=== PATIENT | female | born 1980 | race Caucasian/White ===

== ENCOUNTER 2017-05-30 14:58 | Emergency (ER) | payer SELFPAY ==
--- NOTE | 2017-05-30 16:09 | ED.PDOC ---
History of Present Illness - General Chief Complaint: Problem Stated Complaint: left flank pain/fever Time Seen by Provider: 05/30/17 16:08 Source: patient Exam Limitations: no limitations - History of Present Illness Initial Comments: Mallika Hanson 36 y/o female stated that she had sharp intermittent left flank pains the last 3 days getting worse denies dysuria,felt nauseated able to eat a little bit but threw up once today also febrile today and chills Timing/Duration: intermittent, other - 3 days Improving Factors: nothing Worsening Factors: nothing Associated Symptoms: loss of appetite Allergies/Adverse Reactions: Allergies NO KNOWN ALLERGY Allergy (Verified 05/30/17 15:47) Home Medications: Ambulatory Orders HYDROcodone 5MG/APAP 325MG [[place] 5/325] 1 - 2 ea PO Q4H PRN #40 tab 04/02/16 Levofloxacin [Levaquin] 500 mg PO DAILY #5 tab 04/02/16 metroNIDAZOLE [Flagyl] 500 mg PO Q8HR #15 tab 04/02/16 Acetamin W/Cod #3 Tab [Tylenol w/CODEINE #3] 1 ea PO Q4HR PRN #14 tab 05/30/17 Sulfamethoxazole-Trimethoprim [Bactrim Ds 800-160 mg] 1 tab PO BID #14 tab 05/30 Review of Systems - Review of Systems Constitutional: States: see HPI, fever EENTM: States: no symptoms reported Respiratory: States: no symptoms reported Cardiology: States: no symptoms reported Gastrointestinal/Abdominal: States: no symptoms reported Genitourinary: States: no symptoms reported Musculoskeletal: States: see HPI, other - left flank pain Past Medical History (General) - Patient Medical History Hx Seizures: No Hx Stroke: No Hx Asthma: No Hx of COPD: No Hx Cardiac Disorders: No Hx Congestive Heart Failure: No Hx Pacemaker: No Hx Hypertension: No Hx Diabetes: No Hx MRSA: No Surgical History: appendectomy - Vaccination History Hx Tetanus, Diphtheria Vaccination: No Hx Influenza Vaccination: No Hx Pneumococcal Vaccination: No - Social History Hx Tobacco Use: No Hx Alcohol Use: Yes - occassionally Hx Substance Use: Yes - methamphetamines 11 yrs ago Hx Substance Use Treatment: No Hx Physical Abuse: No Hx Emotional Abuse: No - Activities of Daily Living Hospice Agency (if applicable):: None - Female History Patient is a Female of Child Bearing Age (10 -59 yrs old): Yes Hx Last Menstrual Period: 05/17/17 Patient : No - Triage Comment ED Triage Comment: LMP one week ago Family Medical History - Family History Mother Family History: No Known Living Status: Still Living Physical Exam - Physical Exam General Appearance: Alert, Comfortable, No apparent distress Eye Exam: bilateral normal Ears, Nose, Throat: hearing grossly normal, normal ENT inspection, normal pharynx Neck: non-tender, supple, normal inspection Respiratory: chest non-tender, lungs clear, normal breath sounds Cardiovascular/Chest: normal peripheral pulses, regular rate, rhythm, no murmur Peripheral Pulses: radial,right: 2+, radial,left: 2+ Gastrointestinal/Abdominal: non tender, soft, no organomegaly Back Exam: no vertebral tenderness, CVA tenderness (L) Extremity: non-tender, no pedal edema, no calf tenderness Neurologic: no motor/sensory deficits, alert, oriented x 3 Progress - Progress Progress: 05/30/17 16:51 Vital Signs - 8 hr 05/30/17 15:38 Temperature 102.4 F H Pulse Rate [ 102 H pulse ox] Respiratory 20 Rate Blood Pressure 117/78 [Left Arm] O2 Sat by Pulse 99 Oximetry 05/30/17 20:35 Declined transfer to [facility] wants to see md in am - Results/Orders Results/Orders: Laboratory Tests 05/30/17 05/30/17 05/30/17 16:33 16:33 16:33 WBC 10.8 RBC 4.05 L Hgb 12.4 Hct 36.5 MCV 90.0 MCH 30.6 MCHC 34.1 RDW 12.9 Plt Count 195 MPV 7.6 Absolute Neuts (auto) 9.70 H Absolute Lymphs (auto) 0.40 L Absolute Monos (auto) 0.70 Absolute Eos (auto) 0.00 Absolute Basos (auto) 0.00 Neutrophils % 89.9 H Lymphocytes % 3.3 L Monocytes % 6.5 Eosinophils % 0.1 L Basophils % 0.2 Sodium 135 Potassium 3.8 Chloride 104 Carbon Dioxide 24 Anion Gap 10.8 L BUN 15 Creatinine 1.24 BUN/Creatinine Ratio 12.1 Random Glucose 118 H Serum Osmolality 272.0 L Calcium 9.0 Total Bilirubin 1.3 H AST 17 ALT 16 Alkaline Phosphatase 51 Serum Total Protein 7.3 Albumin 4.2 Globulin 3.1 Albumin/Globulin Ratio 1.4 Urine Color Yellow Urine Appearance Sl cloudy Urine pH 5.5 Ur Specific [place] 1.020 Urine Protein Negative Urine Glucose (UA) Negative Urine Ketones Negative Urine Blood Trace-lysed H Urine Nitrite Negative Urine Bilirubin Negative Urine Urobilinogen 0.2 Ur Leukocyte Esterase Small H Urine RBC 0-1 Urine WBC 5-10 H Ur Epithelial Cells 3-5 Urine Bacteria 2+ H Urine HCG, Qual 05/30/17 16:38 WBC RBC Hgb Hct MCV MCH MCHC RDW Plt Count MPV Absolute Neuts (auto) Absolute Lymphs (auto) Absolute Monos (auto) Absolute Eos (auto) Absolute Basos (auto) Neutrophils % Lymphocytes % Monocytes % Eosinophils % Basophils % Sodium Potassium Chloride Carbon Dioxide Anion Gap BUN Creatinine BUN/Creatinine Ratio Random Glucose Serum Osmolality Calcium Total Bilirubin AST ALT Alkaline Phosphatase Serum Total Protein Albumin Globulin Albumin/Globulin Ratio Urine Color Urine Appearance Urine pH Ur Specific [place] Urine Protein Urine Glucose (UA) Urine Ketones Urine Blood Urine Nitrite Urine Bilirubin Urine Urobilinogen Ur Leukocyte Esterase Urine RBC Urine WBC Ur Epithelial Cells Urine Bacteria Urine HCG, Qual Negative - EKG/XRAY/CT CT Ordered: Yes - abd/p-5 mm obstructing stone left upj junction w/mild hydronephrosis Departure - Departure Clinical Impression: Obstruction of left ureteropelvic junction (UPJ) due to stone, Acute left flank pain, Left nephrolithiasis Time of Disposition: 20:37 Disposition: Discharge to Home or Self Care Departure Forms: ED Discharge - Pt. Copy, Patient Portal Self Enrollment Instructions: Kidney Stones (Alternative Therapy), Kidney Stones -- Adult, DI for Kidney Stones Referrals: ENRIQUE KENNEDY [Primary Care Provider] - 1-2 Weeks Prescriptions: Acetamin W/Cod #3 Tab [Tylenol w/CODEINE #3] 1 ea PO Q4HR PRN #14 tab PRN Reason: Pain Sulfamethoxazole-Trimethoprim [Bactrim Ds 800-160 mg] 1 tab PO BID #14 tab Home Medications: Ambulatory Orders HYDROcodone 5MG/APAP 325MG [[place] 5/325] 1 - 2 ea PO Q4H PRN #40 tab 04/02/16 Levofloxacin [Levaquin] 500 mg PO DAILY #5 tab 04/02/16 metroNIDAZOLE [Flagyl] 500 mg PO Q8HR #15 tab 04/02/16 Acetamin W/Cod #3 Tab [Tylenol w/CODEINE #3] 1 ea PO Q4HR PRN #14 tab 05/30/17 Sulfamethoxazole-Trimethoprim [Bactrim Ds 800-160 mg] 1 tab PO BID #14 tab 05/30 Additional Instructions: NEED TO FOLLOW UP WITH PRIMARY MD in am 05/31/2017 BHAVESH for urology referral Return to emergency room as needed May take Advil(otc) 3- 4 tabs 4 x a day with tylenol 3 for pain
[2017-05-30] MEDS ORDERED: LACTATED RINGERS 1,000 ML IVS ONE (16:10)
[2017-05-30] MEDS ORDERED: KETOROLAC TROMETHAMINE INJ 30 MG/ML VIAL IV ONE (16:36)
[2017-05-30] MEDS ORDERED: MORPHINE SULFATE INJ 10 MG/ML VIAL IV ONE ×2 (16:37→19:41)
[2017-05-30] MEDS ORDERED: PROMETHAZINE HCL INJ 25 MG/ML VIAL IM ONE (16:37)
--- NOTE | 2017-05-30 18:52 | CT ---
EXAM DESCRIPTION: Abdomen/Pelvis w/Contrast CLINICAL HISTORY: 36 years Female, pain COMPARISON: 03/31/2016 TECHNIQUE: Contiguous axial CT images of the abdomen and pelvis were acquired after the administration of intravenous contrast. Coronal and sagittal reformatted images are provided. This exam was performed according to our departmental dose-optimization program which includes use of Automated Exposure Control, adjustment of the mA and/or kV according to patient size and/or use of iterative reconstruction technique. FINDINGS: Chest base: Small right pleural effusion. Mild dependent atelectasis bilaterally. Liver: Unremarkable liver. Mild intrahepatic and extrahepatic biliary ductal dilatation without identifiable obstructing stone. Gallbladder: Unremarkable. Spleen: Unremarkable. Adrenals: Unremarkable. Pancreas: Unremarkable. Right Kidney: No renal stones or hydronephrosis. Left Kidney: A 5 mm obstructing stone is seen within the left UPJ resulting in mild left hydronephrosis. Additionally, at least four punctate nonobstructing stones are seen in the left renal pelvis. Aorta and branch vessels: Unremarkable. Lymph nodes: No lymphadenopathy. Bowels: No obstruction. Colon: No wall thickening. Appendix: Not identified Peritoneum: No free air or free fluid. Pelvic organs: Unremarkable. Bladder: Unremarkable. Bones and soft tissues: No acute osseous or soft tissue abnormalities. IMPRESSION: 5 mm obstructing left UPJ stone with mild left hydronephrosis. At least four punctate nonobstructing stones are seen in the left renal pelvis. Mild intrahepatic and extrahepatic biliary ductal dilatation without obstructing stone. Small right pleural effusion. Electronically signed by: Danial Sandhu MD 05/30/2017 6:50 PM CDT
[2017-05-30] MEDS ORDERED: levoFLOXacin 500MG IV 500 MG in PREMIX BAG 1 BAG IVPB ONE (19:17)
[2017-05-30] MEDS ORDERED: levoFLOXacin 500MG IV 100 ML IVPB ONE (19:18)
[2017-05-30] MEDS ORDERED: SODIUM CHLORIDE 0.9% 1000ML 1,000 ML IVS ONE (19:43)
[2017-05-30] MEDS ORDERED: ACETAMINOPHEN 325 MG TAB PO ONE (20:33)
[2017-05-30] MEDS ORDERED: HYDROCOD/APAP 10/325 (ER DISP) # 3 tablets PO ONE (20:47)
[2017-05-30 22:25] VITALS: BP 112/79; TEMP 100; O2SAT 95
== END 2017-05-30 22:15 | disposition home or self-care (01) ==
LOC: ER 14:58
DX: N13.2 Hydronephrosis with renal and ureteral calculous obstruction (principal)
CPT/HCPCS: 36415; 74177; 80053; 81001; 81025; 85025; 87086; J1885; J1956; J2270; J2550; J7030; J7120

== ENCOUNTER 2017-06-03 01:01 | Emergency (ER) | payer SELFPAY ==
[2017-06-03] MEDS ORDERED: SODIUM CHLORIDE 0.9% 1000ML 1,000 ML IVS ONE (01:24)
--- NOTE | 2017-06-03 01:31 | ED.PDOC ---
History of Present Illness - General Chief Complaint: Fever Stated Complaint: fever, N/V/D Time Seen by Provider: 06/03/17 01:14 Source: patient, RN notes reviewed, Vital Signs reviewed, family Exam Limitations: no limitations - History of Present Illness Initial Comments: Patient comes in with c/o fever to 103.8 tonight with nausea and vomiting. She was seen here in the ER on 05/30/17 with same symptoms and diagnosed with a 5mm obstructing kidney stone on L with mild hydronephrosis. Refused transfer to [facility]. Send home with pain medication and Bactrim. Symptoms of nausea and vomiting have continues since. She has not passed a kidney stone yet, still with flank pain but now hurts all over. Saw PCP but did not go to Urologist due to cost. Timing/Duration: getting worse - over past 3 days Fever Severity/Quality: greater than 102 F Fever Therapy PATIENT SUPPORT SPECIALIST: Tylenol Associated Symptoms: abdominal pain, headache, muscle aches, nausea/vomiting Review of Systems - Review of Systems Constitutional: States: chills, fever, malaise EENTM: States: no symptoms reported Respiratory: States: no symptoms reported Cardiology: States: no symptoms reported Gastrointestinal/Abdominal: States: see HPI, constipation - resolved with OTC medications yesterday, nausea, vomiting Genitourinary: States: see HPI Musculoskeletal: States: muscle pain Skin: States: no symptoms reported Neurological: States: headache All other Systems: No Change from Baseline Past Medical History (General) - Patient Medical History Hx Seizures: No Hx Stroke: No Hx Dementia: No Hx Asthma: No Hx of COPD: No Hx Cardiac Disorders: No Hx Congestive Heart Failure: No Hx Pacemaker: No Hx Hypertension: No Hx Thyroid Disease: No Hx Diabetes: No Hx Gastroesophageal Reflux: No Hx Renal Disease: No Hx Cancer: No Hx of HIV: No Hx Hepatitis C: No Hx MRSA: No Surgical History: appendectomy - Vaccination History Hx Tetanus, Diphtheria Vaccination: No Hx Influenza Vaccination: No Hx Pneumococcal Vaccination: No - Social History Hx Tobacco Use: No Hx Chewing Tobacco Use: No Hx Alcohol Use: Yes - occassionally Hx Substance Use: Yes - methamphetamines 11 yrs ago Hx Substance Use Treatment: No Hx Depression: No Feels Threatened In Home Enviroment: No Feels Threatened In a Relationship: No Hx Physical Abuse: No Hx Emotional Abuse: No Hx Suspected Abuse: No - Female History Hx Last Menstrual Period: 05/17/17 Patient : No Family Medical History - Family History Mother Family History: No Known Living Status: Still Living Physical Exam - Physical Exam General Appearance: Alert, No apparent distress, Well Developed, Well Groomed, Well Hydrated, Well Nourished Neck: supple, normal inspection Respiratory: lungs clear, normal breath sounds, no respiratory distress, no accessory muscle use Cardiovascular/Chest: regular rate, rhythm, no edema, no gallop, no murmur Gastrointestinal/Abdominal: normal bowel sounds, soft, no organomegaly, tenderness - LUQ, other - L CVA tenderness Extremity: normal range of motion, normal inspection Neurologic: alert, normal mood/affect, oriented x 3 Skin Exam: normal color, warm/dry Comments: Vital Signs 06/03/17 01:05 Temperature 103.4 F H Pulse Rate [ 123 H monitor] Respiratory 16 Rate Blood Pressure 123/74 [Left Arm] O2 Sat by Pulse 94 L Oximetry Progress - Progress Progress: 06/03/17 01:38 Took Ibuprofen 600mg @ midnight. Last took Tylenol and 20:00 last night. Will give Tylenol 1gm PO for fever. 06/03/17 02:[address] results with patient. Will need transfer to [facility] for kidney stone removal. Explained stone will not pass and kidney and infection will only worsen w/o removal of kidney stone from ureter. She is agreeable to transfer. - Results/Orders Results/Orders: CT scan continues to show 5mm stone in L proximal ureter. Now with moderate hydronephrosis and the kidney is edematous suggesting pyelonephrosis. Urine culture from 05/30/17 grew [facility] Laboratory Tests 06/03/17 06/03/17 06/03/17 01:50 01:50 01:50 WBC 3.9 L RBC 3.45 L Hgb 10.4 L Hct 30.8 L MCV 89.4 MCH 30.1 MCHC 33.8 RDW 13.1 Plt Count 161 MPV 8.6 Absolute Neuts (auto) 3.40 Absolute Lymphs (auto) 0.30 L Absolute Monos (auto) 0.10 L Absolute Eos (auto) 0.00 Absolute Basos (auto) 0.00 Neutrophils % 87.1 H Lymphocytes % 8.1 L Monocytes % 3.5 Eosinophils % 1.0 Basophils % 0.3 Sodium 132 L Potassium 2.7 L Chloride 99 L Carbon Dioxide 26 Anion Gap 9.7 L BUN 14 Creatinine 1.73 H BUN/Creatinine Ratio 8.1 L Random Glucose 141 H Serum Osmolality 267.4 L Lactic Acid 2.6 H* Calcium 8.2 L Total Bilirubin 0.4 AST 22 ALT 17 Alkaline Phosphatase 83 Serum Total Protein 6.5 Albumin 3.0 L Globulin 3.5 Albumin/Globulin Ratio 0.9 L Urine Color Urine Appearance Urine pH Ur Specific [place] Urine Protein Urine Glucose (UA) Urine Ketones Urine Blood Urine Nitrite Urine Bilirubin Urine Urobilinogen Ur Leukocyte Esterase Urine RBC Urine WBC Ur Epithelial Cells Urine Bacteria 06/03/17 02:00 WBC RBC Hgb Hct MCV MCH MCHC RDW Plt Count MPV Absolute Neuts (auto) Absolute Lymphs (auto) Absolute Monos (auto) Absolute Eos (auto) Absolute Basos (auto) Neutrophils % Lymphocytes % Monocytes % Eosinophils % Basophils % Sodium Potassium Chloride Carbon Dioxide Anion Gap BUN Creatinine BUN/Creatinine Ratio Random Glucose Serum Osmolality Lactic Acid Calcium Total Bilirubin AST ALT Alkaline Phosphatase Serum Total Protein Albumin Globulin Albumin/Globulin Ratio Urine Color Yellow Urine Appearance Sl cloudy Urine pH 7.0 Ur Specific [place] 1.025 Urine Protein 100 H Urine Glucose (UA) Negative Urine Ketones Negative Urine Blood Small H Urine Nitrite Negative Urine Bilirubin Negative Urine Urobilinogen 0.2 Ur Leukocyte Esterase Small H Urine RBC 3-5 H Urine WBC >50 H Ur Epithelial Cells 3-5 Urine Bacteria 2+ H - EKG/XRAY/CT CT Ordered: Yes - 5mm stone L prox ureter w/ mod hydronephrosis, edematous kidney per Rad Departure - Departure Clinical Impression: Pyelonephritis, Left ureteral calculus, Hypokalemia Time of Disposition: 02:37 Disposition: Transfer to Hospital Condition: Poor Departure Forms: ED Discharge - Pt. Copy, Patient Portal Self Enrollment Referrals: ENRIQUE KENNEDY [Primary Care Provider] - 1-2 Weeks Home Medications: Ambulatory Orders HYDROcodone 5MG/APAP 325MG [[place] 5/325] 1 - 2 ea PO Q4H PRN #40 tab 04/02/16 Levofloxacin [Levaquin] 500 mg PO DAILY #5 tab 04/02/16 metroNIDAZOLE [Flagyl] 500 mg PO Q8HR #15 tab 04/02/16 Acetamin W/Cod #3 Tab [Tylenol w/CODEINE #3] 1 ea PO Q4HR PRN #14 tab 05/30/17 Sulfamethoxazole-Trimethoprim [Bactrim Ds 800-160 mg] 1 tab PO BID #14 tab 05/30 Transfer to Outside Facility - Transfer Information Accepting Provider:: Dr. Daniels - Hospitalist Accepting Facility: [facility] Reason for Transfer: required specialist not available
[2017-06-03] MEDS ORDERED: ACETAMINOPHEN 500 MG TAB PO ONE (01:38)
--- NOTE | 2017-06-03 01:57 | CT ---
Procedure: CT ABDOMEN PELVIS WITHOUT IV CONTRAST Exam Date: 06/03/2017 Ordering Provider: Ailyn Gil Clinical Indication: L kidney stone - worsening symptoms Comparison: 05/30/2017 TECHNIQUE: 5 mm images were taken through the abdomen and pelvis without the administration of nonionic intravenous contrast material. Oral contrast was not administered. Coronal and sagittal reformatted images were generated. This exam was performed according to our departmental dose optimization program which includes use of automated exposure control, adjustment of the mA and/or kV according to patient size and/or use of iterative reconstruction technique. FINDINGS: Lower chest: Left basilar atelectasis. Small bilateral pleural effusions. Abdomen: Liver and biliary system: Unremarkable. No calcified gallstones. Spleen: Unremarkable Pancreas: Unremarkable Adrenal glands: Unremarkable Kidneys: 5 mm stone redemonstrated in the proximal left ureter. Moderate hydronephrosis in the left kidney. Left kidney appears edematous. Additional millimetric stones in the left kidney. Retained contrast in the left kidney from prior exam. No hydronephrosis in the right kidney. Perinephric stranding on the left. No gas within the left kidney or collecting system. Lymph nodes: [place] retroperitoneal lymph nodes. Retroperitoneum, abdominal wall, peritoneal cavity: No ascites. No free intraperitoneal air. Vessels: No abdominal aortic aneurysm. Pelvis: Lymph nodes: No lymphadenopathy Bowel: No bowel obstruction. Appendix not visualized. No bowel wall thickening. Bladder: Unremarkable Pelvic organs: Unremarkable Bones: Nonacute IMPRESSION: 1. 5 mm stone in the proximal left ureter with moderate hydronephrosis in the left kidney. Left kidney appears edematous, question changes of pyelonephritis. 2. Small bilateral pleural effusions. Electronically signed by: Sam Guzman MD 06/03/2017 1:55 AM CDT
[2017-06-03] MEDS ORDERED: levoFLOXacin 500MG IV 500 MG in PREMIX BAG 1 BAG IVPB ONE (02:15)
[2017-06-03] MEDS ORDERED: KCL 40 MEQ/WATER FOR INJECTION 40 MEQ in PREMIX BAG 1 BAG IVPB ONE (02:20)
[2017-06-03] MEDS ORDERED: levoFLOXacin 500MG IV 100 ML IVPB ONE (02:23)
[2017-06-03 02:43] VITALS: BP 95/58; TEMP 101; O2SAT 98
[2017-06-03] MEDS ORDERED: KCL 40 MEQ/WATER FOR INJECTION 100 ML IVPB ONE (02:49)
[2017-06-03] MEDS ORDERED: SODIUM CHLORIDE 0.9% 1000ML 1,000 ML IVS PRN (03:00)
== END 2017-06-03 03:09 | disposition short-term general hospital (02) ==
LOC: ER 01:01
DX: N13.6 Pyonephrosis (principal); E87.6 Hypokalemia
CPT/HCPCS: 36415; 74176; 80053; 81001; 83605; 85025; 87086; J1956; J3480; J7030